=== PATIENT | male | born 1955 | race Caucasian/White ===

== ENCOUNTER 2016-12-02 12:26 | Emergency (ER) | payer BC ==
[~2016-12-02] VITALS: Ht 185.4 cm; Wt 79.7 kg
[2016-12-02 12:34] VITALS: TEMP 36.7; Ht 185.4 cm; Wt 79.7 kg
[2016-12-02 14:01] LABS: URINE APPEARANCE CLEAR (CLEAR); URINE BILIRUBIN NEG (NEG); URINE COLOR YELLOW; URINE NITRITE NEG (NEG); URINE SPECIFIC GRAVITY 1.024 (1.000-1.030); UROBILINOGEN NEG (NEG); ZZUR CULT IF INDIC CLEAN CATCH NO
[2016-12-02 14:06] LABS: MANUAL MICROSCOPIC REQUIRED? NO; REVIEW REQ? NO
[2016-12-02 15:24] LABS: BASO % 0.3 %; BASO ABS # 0.02 K/uL (0-0.2); COMPLETE YES; EOS % 0.8 %; IG% 0.2 %; LYMPH % 24.8 %; LYMPH ABS # 1.63 K/uL (1.2-3.4); MEAN CELL VOLUME 88.9 fL (80-100); MEAN CORPUSCULAR HGB CONC 34.9 g/dl (32-36); MEAN PLATELET VOLUME 9.5 fL (7.4-10.4); MONO % 6.8 %; NEUT % 67.1 %; PLATELET COUNT 236 K/uL (130-400); RED BLOOD COUNT 4.61 M/uL (4.7-6.1); WHITE BLOOD COUNT 6.58 K/uL (4.8-10.8)
[2016-12-02 15:47] LABS: BUN/CREATININE RATIO 17.1 (10-20); C-REACTIVE PROTEIN 0.36 mg/dl (0-0.29); CREATININE 0.9 mg/dl (0.60-1.40); POTASSIUM 3.8 mmol/L (3.5-5.1)
[2016-12-02] MEDS ORDERED: OPTIRAY 320 IV PRN (16:00)
--- NOTE | 2016-12-02 17:21 | DIAGNOSTIC IMAGING REPORT ---
CT LUMBAR SPINE WITHOUT CLINICAL HISTORY: Low back pain. History of bladder cancer. TECHNIQUE: Axial images of the lumbar spine were obtained without IV contrast. Sagittal and coronal reconstructions were viewed. COMPARISON STUDY: None. FINDINGS: There is 1 cm of anterolisthesis of L5 on S1 due to bilateral L5 pars defects. There is mild levoscoliosis of the lumbar spine. There is no acute fracture or suspicious lesion by CT. The central canal and neural foramen are suboptimally assessed by CT. Multilevel disc bulges are noted, the most prominent of which is at the L3-L4 level. This likely results in mild narrowing of the central canal. Paravertebral soft tissues are unremarkable. IMPRESSION: 1. No acute lumbar spine fracture or subluxation. 2. Grade I anterolisthesis of L5 on S1 due to bilateral L5 pars defects. 3. Mild multilevel degenerative disc disease and facet arthrosis. Electronically signed by: Nehemiah Locke M.D. 12/02/2016 5:19 PM Dictated Date/Time: 12/02/2016 5:15 PM
--- NOTE | 2016-12-02 17:26 | DIAGNOSTIC IMAGING REPORT ---
CT PELVIS W/IV CONT ONLY (CT) CT DOSE: 875.31 mGy.cm CLINICAL HISTORY: Pelvic tenderness. Lower back pain. History of bladder cancer. TECHNIQUE: Axial images of the pelvis were obtained following intravenous injection of 93 cc Optiray 320 IV. COMPARISON STUDY: None. FINDINGS: There is extensive sigmoid diverticulosis without evidence for acute diverticulitis. The caliber and wall thickness of visualized small and large bowel is normal. There is no pelvic lymphadenopathy no suspicious osseous lesions are present. No acute fracture within the pelvis or hips is identified. An 8 mm right renal cyst is noted. There is no perianal or perirectal abscess. IMPRESSION: 1. No acute process within the pelvis. 2. Extensive sigmoid diverticulosis without evidence for acute diverticulitis. 3. No perianal/perirectal abscess. Electronically signed by: Nehemiah Locke M.D. 12/02/2016 5:25 PM Dictated Date/Time: 12/02/2016 5:20 PM
[2016-12-02] MEDS ORDERED: CIPR-255 PO (18:47)
[2016-12-02] MEDS ORDERED: CIPROFLOXACIN 500 MG TAB PO STA ×2 (18:48)
[2016-12-02 19:00] VITALS: BP 146/90; PULSE 68; O2SAT 100
--- NOTE | 2016-12-03 00:12 | EMERGENCY ROOM VISIT NOTE ---
History Report prepared by Davion: Lul Farmer Under the Supervision of: Dr. Billy Buchanan M.D. First contact with patient: 14:44 Chief Complaint: BACK PAIN Stated Complaint: LOWER BACK PAIN,TENDER PELVIC AREA,BURNING IN [facility] History of Present Illness The patient is a 61 year old male who presents to the Emergency Room with complaints of intermittent lower back pain beginning one week prior to arrival. He currently rates his discomfort as a 4/10 in severity. The patient associates back pain that radiates to his right groin and down his right leg with today's symptoms. He states he was doing outdoor work around the house and experienced some discomfort with bending over but dismissed it. The patient notes he started experiencing pain and burning in his groin area that radiated to the back of his right leg. The patient states that he was sitting on a narrow stool for an extended period of time and is concerned that this may have irritated his prostate. He states he has a history of bladder cancer and has not had symptoms since 2010. The patient notes his brother had his prostate removed a couple weeks ago due to prostate cancer, and he had similar symptoms except for the back pain. He states he took Aspirin the other day for a road trip to [place], which relieved his discomfort. The patient also notes he has experienced some nausea over the past few days, which is unusual even though he normally skips breakfast and lunch. Pt denies LOC, loss of control of bowel or bladder, passing out, headache, fevers, chills, diaphoresis, visual changes, neck pain, chest pain, breathing difficulties, vomiting, abdominal pain, melena , hematochezia, urinary symptoms, numbness, weakness, lymphadenopathy, rash, or other complaints. Source of History: patient Onset: one week [employer] Position: back (lower) Symptom Intensity: 4/10 Quality: burning Timing: intermittent Associated Symptoms: + back pain, + nausea (intermittent) Note: Associated symptoms: associates back pain that radiates to his right groin and down his right leg Review of Systems See HPI for pertinent positives and negatives. A total of ten systems were reviewed and were otherwise negative. Past Medical & Surgical Medical Problems: (1) Bladder cancer Surgical Problems: (1) H/O partial cystectomy (2) S/P knee surgery Family History Cancer Diabetes mellitus Heart disease Social History Smoking Status: Never Smoker Alcohol Use: occasionally Marital Status: Housing Status: lives with significant other Current/Historical Medications Scheduled Ciprofloxacin Hcl (Cipro), 500 MG PO BID Allergies Coded Allergies: Penicillins (Verified Allergy, Severe, ANAPHYLAXIS, 12/02/16) Physical Exam Vital Signs Date Time Temp Pulse Resp B/P Pulse Ox O2 Delivery O2 Flow Rate FiO2 12/02/16 19:00 68 18 146/90 100 Room Air 12/02/16 16:59 66 18 120/78 99 Room Air 12/02/16 14:39 65 16 132/82 100 12/02/16 12:34 36.7 74 20 128/79 97 Room Air Physical Exam GENERAL: Awake, alert, well-appearing, in no distress HENT: Normocephalic, atraumatic. Oropharynx unremarkable. EYES: Normal conjunctiva. Sclera non-icteric. NECK: Supple. No nuchal rigidity. FROM. No JVD. RESPIRATORY: Clear to auscultation. CARDIAC: Regular rate, normal rhythm. Extremities warm and well perfused. Pulses equal. ABDOMEN: Soft, non-distended. No tenderness to palpation. No rebound or guarding. No masses. RECTAL: Normal rectal. Heme negative. normal tone. No prostate masses appreciated. Mild discomfort on pressing examination but no significant prostate tenderness appreciated. MUSCULOSKELETAL: Chest examination reveals no tenderness. The back is symmetrical on inspection without obvious abnormality. There is no CVA tenderness to palpation. No joint edema. LOWER EXTREMITIES: Calves are equal size bilaterally and non-tender. No edema. No discoloration. NEURO: Normal sensorium. No sensory or motor deficits noted. No saddle anesthesia. Gait normal. SKIN: No rash or jaundice noted. Medical Decision & Procedures ER Provider Diagnostic Interpretation: CT: Radiology results as stated below per my review and radiologist interpretation CT PELVIS W/IV CONT ONLY (CT) CT DOSE: 875.31 mGy.cm CLINICAL HISTORY: Pelvic tenderness. Lower back pain. History of bladder cancer. TECHNIQUE: Axial images of the pelvis were obtained following intravenous injection of 93 cc Optiray 320 IV. COMPARISON STUDY: None. FINDINGS: There is extensive sigmoid diverticulosis without evidence for acute diverticulitis. The caliber and wall thickness of visualized small and large bowel is normal. There is no pelvic lymphadenopathy no suspicious osseous lesions are present. No acute fracture within the pelvis or hips is identified. An 8 mm right renal cyst is noted. There is no perianal or perirectal abscess. IMPRESSION: 1. No acute process within the pelvis. 2. Extensive sigmoid diverticulosis without evidence for acute diverticulitis. 3. No perianal/perirectal abscess. Electronically signed by: Nehemiah Locke M.D. 12/02/2016 5:[address] LUMBAR SPINE WITHOUT CLINICAL HISTORY: Low back pain. History of bladder cancer. TECHNIQUE: Axial images of the lumbar spine were obtained without IV contrast. Sagittal and coronal reconstructions were viewed. COMPARISON STUDY: None. FINDINGS: There is 1 cm of anterolisthesis of L5 on S1 due to bilateral L5 pars defects. There is mild levoscoliosis of the lumbar spine. There is no acute fracture or suspicious lesion by CT. The central canal and neural foramen are suboptimally assessed by CT. Multilevel disc bulges are noted, the most prominent of which is at the L3-L4 level. This likely results in mild narrowing of the central canal. Paravertebral soft tissues are unremarkable. IMPRESSION: 1. No acute lumbar spine fracture or subluxation. 2. Grade I anterolisthesis of L5 on S1 due to bilateral L5 pars defects. 3. Mild multilevel degenerative disc disease and facet arthrosis. Electronically signed by: Nehemiah Locke M.D. 12/02/2016 5:19 PM Laboratory Results 12/02/16 15:15 Red Blood Count 4.61, Mean Corpuscular Volume 88.9, Mean Corpuscular Hemoglobin 31.0, Mean Corpuscular Hemoglobin Concent 34.9, Mean Platelet Volume 9.5, Neutrophils (%) (Auto) 67.1, Lymphocytes (%) (Auto) 24.8, Monocytes (%) (Auto) 6.8, Eosinophils (%) (Auto) 0.8, Basophils (%) (Auto) 0.3, Neutrophils # (Auto) 4.42, Lymphocytes # (Auto) 1.63, Monocytes # (Auto) 0.45, Eosinophils # (Auto) 0.05, Basophils # (Auto) 0.02 12/02/16 15:15 Test 12/02/16 00:00 12/02/16 15:15 Urine Color YELLOW Urine Appearance CLEAR (CLEAR) Urine pH 6.0 (4.5-7.5) Urine Specific [place] 1.024 (1.000-1.030) Urine Protein NEG (NEG) Urine Glucose (UA) NEG (NEG) Urine Ketones NEG (NEG) Urine Occult Blood NEG (NEG) Urine Nitrite NEG (NEG) Urine Bilirubin NEG (NEG) Urine Urobilinogen NEG (NEG) Urine Leukocyte Esterase NEG (NEG) White Blood Count 6.58 K/uL (4.8-10.8) Red Blood Count 4.61 M/uL (4.7-6.1) Hemoglobin 14.3 g/dL (14.0-18.0) Hematocrit 41.0 % (42-52) Mean Corpuscular Volume 88.9 fL (80-100) Mean Corpuscular Hemoglobin 31.0 pg (25-34) Mean Corpuscular Hemoglobin Concent 34.9 g/dl (32-36) Platelet Count 236 K/uL (130-400) Mean Platelet Volume 9.5 fL (7.4-10.4) Neutrophils (%) (Auto) 67.1 % Lymphocytes (%) (Auto) 24.8 % Monocytes (%) (Auto) 6.8 % Eosinophils (%) (Auto) 0.8 % Basophils (%) (Auto) 0.3 % Neutrophils # (Auto) 4.42 K/uL (1.4-6.5) Lymphocytes # (Auto) 1.63 K/uL (1.2-3.4) Monocytes # (Auto) 0.45 K/uL (0.11-0.59) Eosinophils # (Auto) 0.05 K/uL (0-0.5) Basophils # (Auto) 0.02 K/uL (0-0.2) RDW Standard Deviation 39.5 fL (36.4-46.3) RDW Coefficient of Variation 12.3 % (11.5-14.5) Immature Granulocyte % (Auto) 0.2 % Immature Granulocyte # (Auto) 0.01 K/uL (0.00-0.02) Erythrocyte Sedimentation Rate 12 mm/hr (0-14) Anion Gap 3.0 mmol/L (3-11) Est Creatinine Clear Calc Drug Dose 98.4 ml/min Estimated GFR () 107.2 Estimated GFR (Non- 92.5 BUN/Creatinine Ratio 17.1 (10-20) Calcium Level 9.0 mg/dl (8.5-10.1) C-Reactive Protein 0.36 mg/dl (0-0.29) Prostate Specific Antigen 0.436 ng/ml (0.000-4.000) Laboratory results reviewed by me Medications Administered Medications (Trade) Dose Ordered Sig/Clay Route Start Time Stop Time Status Last Admin Dose Admin Ciprofloxacin (Cipro Tab) 500 mg NOW STAT PO 12/02/16 18:48 12/02/16 18:51 DC 12/02/16 18:59 500 MG Ciprofloxacin (Cipro Tab) 500 mg NOW STAT PO 12/02/16 18:48 12/02/16 18:51 DC 12/02/16 18:59 500 MG ED Course 1450: The patient was evaluated in room C8. A complete history and physical exam was performed. 1848: Ordered Cipro Tab 500 mg PO, Cipro Tab 500 mg PO. 1850: I reevaluated the patient. Discussed results and discharge instructions: He verbalized understanding and agreement. I gave the patient Cipro to take home. The patient is ready for discharge. Medical Decision Triage Nursing notes reviewed. The patient's presentation and history were concerning for back and groin pain. Etiologies such as prostatitis, perirectal abscess, malignancy, lumbago, sciatica, cauda equina, epidural abscess, osteomyelitis, fracture, aortic disease, metastatic disease, infection, renal colic, gastrointestinal, as well as others were entertained. The patient was evaluated. Clinically he was doing well. Neurologic findings were absent on examination. His prostate examination was rather unremarkable. The patient had an unremarkable CBC, chemistry panel and urinalysis. CRP minimally elevated. PSA was normal. The patient underwent CT imaging of the pelvis as well as lumbar spine. Degenerative disc disease was noted but no signs of bony destruction or fracture. The pelvis examination revealed no gross abnormalities. On reassessment the patient was doing well. He declined any analgesia again. The patient was informed of the findings. His urinalysis was unremarkable as well. Given his symptoms there is some concern for an early prostatitis albeit very mild. I discussed initiation of treatment and the patient was in agreement. I discussed the risks and benefits of Cipro and he was given the first dose in the Emergency Room. The patient will have this prescribed. He will need close outpatient follow-up. The patient was informed of the findings on his CT scan. I did recommend having a colonoscopy to the patient as well. If he has any increasing symptoms are worsening issues especially with regards to his back then he will need follow-up. I did discuss possible need for MRI. The patient was in agreement. By the evaluation outlined above other emergent etiologies such as those listed in the differential, as well as others, were deemed relatively unlikely. The patient was informed about the findings as listed above. All questions were answered and he was pleased with the treatment. Return instructions were outlined and the patient was discharged in stable condition. The patient was referred to his PCP for follow-up this week for a recheck of the current condition. The chart was completed utilizing [employer]bit Speech voice recognition software. Grammatical errors, random word insertions, pronoun errors, and incomplete sentences are an occasional consequence of this system due to software limitations, ambient noise, and hardware issues. Any formal questions or concerns about the content, text, or information contained within the body of this dictation should be directly addressed to the physician for clarification. Impression Primary Impression: Pelvic pain Additional Impressions: Prostatitis Degenerative disc disease, lumbar Scribe Attestation The scribe's documentation has been prepared under my direction and personally reviewed by me in its entirety. I confirm that the note above accurately reflects all work, treatment, procedures, and medical decision making performed by me. Departure Information Dispostion Home / Self-Care Prescriptions Ciprofloxacin Hcl (CIPRO) 500 Mg Tab 500 MG PO BID, #18 TAB Prov: Billy Buchanan MD 12/02/16 Referrals Juan Antonio Arnett MD (PCP) Forms HOME CARE DOCUMENTATION FORM, IMPORTANT VISIT INFORMATION Patient Instructions My [facility] Additional Instructions Ciprofloxacin(Cipro) 500mg: Take one pill twice daily for 10 days for your prostate. All antibiotics can cause diarrhea. If this occurs and you feel worse or it does not resolve in 1-2 days follow up with your doctor or return to the Emergency Department as this could be signs of serious underlying problems. If you experience any pain in your tendons or any tendon injury return to the ER for re-evaluation. Any medication can cause an allergic reaction, stop the pills immediately and return to the ER for rash, hives, breathing difficulties, or swelling. Ibuprofen(Motrin, Advil) may be used for fever or pain. Use 600mg every six hours as needed. Take with food. Avoid using more than 2400mg in a 24 hour period. Do not use 2400mg per day for more than three consecutive days without physician direction. Prolonged inappropriate use can lead to stomach upset or ulcers. (AND/OR) Acetaminophen(Tylenol) may be used for fever or pain. Use 1000mg every six hours as needed. Avoid using more than 4000mg in a 24 hour period. Rest and drink plenty of fluids. Continue current medications. Return to the ER immediately for worsening or persistent pelvic pain, back pain , weakness, numbness or tingling in the groin area, difficulty walking, vomiting , fevers, increasing back pain, worsening of your condition, or as needed. Follow up with your primary physician within 3 days for a recheck of the current condition. Discuss referral to gastroenterology. If symptoms in your back worsen or do not improve MRI may be necessary as we discussed. Problem Qualifiers Additional Impressions: Prostatitis Prostatitis type: unspecified Qualified Codes: N41.9 - Inflammatory disease of prostate, unspecified
== END 2016-12-02 19:08 | disposition home or self-care (01) ==
LOC: C.EDB 12:29 → C.EDC 19:08
DX: M51.26 Other intervertebral disc displacement, lumbar region (principal); N41.9 Inflammatory disease of prostate, unspecified; R10.2 Pelvic and perineal pain; Z85.51 Personal history of malignant neoplasm of bladder; Z98.890 Other specified postprocedural states; Z88.0 Allergy status to penicillin; Z80.9 Family history of malignant neoplasm, unspecified; Z83.3 Family history of diabetes mellitus; Z82.49 Family history of ischemic heart disease and other diseases of the circulatory system

== ENCOUNTER → 2017-02-13 | Outpatient (CLI) | payer BC ==
[~2017-02-13] MED LIST: CIPR-255 PO
== END | disposition home or self-care (01) ==
LOC: C.RDSM 14:39
PROVIDERS: ATTEND Physical Medicine & Rehabilitation Sports Medicine
DX: M17.12 Unilateral primary osteoarthritis, left knee (principal); S89.91XA Unspecified injury of right lower leg, initial encounter; X58.XXXA Exposure to other specified factors, initial encounter

== ENCOUNTER 2019-06-26 04:47 | Inpatient (IN) ==
--- NOTE | 2019-06-17 12:13 | Anesthesiology Consultation ---
Date of Service June 17, 2019 Assessment & Plan Chart Review Chart Review: Acceptable Risk for Surgery and Patient seen in Pre Admission Testing Consults Requested none ASA ASA2 Proposed Anesthesia Anesthesia Type: MAC Spinal Regional Regional Laterality: Left Site: Adductor Canal History Surgery Operation Date: 06/26/19 09:50 Proposed Procedures p Left Total Knee Arthroplasty - Juanito Singleton MD Height/Weight Height: 6 ft 1 in Weight: 84.9 kg Allergies Allergy/AdvReac Type Severity Reaction Status Date / Time Penicillins Allergy Severe ANAPHYLAXIS Verified 12/02/16 18:04 ciprofloxacin [From Cipro] Allergy Intermediate SWELLING/NU Verified 06/17/19 07:36 MBNESS Medications Home Medications Medication Instructions Recorded Confirmed Last Taken cetirizine [Zyrtec] 10 mg PO QAM 06/17/19 06/17/19 Unknown Past Medical History Medical History Bladder cancer Environmental and seasonal allergies Exercise / Class Metabolic Activity II 4-5 Yardwork/Stairs/Walk up hill Past Family History Family History Mother Family history of diabetes mellitus Brother Family history of diabetes mellitus Past Surgical History Surgical History History of arthroscopy LEFT/RT KNEE History of bladder surgery BLADDER RESECTION AND RADIATION TREATMENT History of colonoscopy History of cystoscopy (MULTIPLE TIMES) History of tonsillectomy [place] teeth removed Past Anesthesia History No Hx of Anesthesia Complications and No Family Hx of Anesthesia Complications History of PONV No Hx of PONV and No Hx of Motion Sickness Social History Smoking Status: Never smoker Do You Dip or Chew Tobacco: No Hx Alcohol Use: Yes alcohol intake frequency: holidays/special occasions only Hx Substance Use: No substance use type: does not use Physical Exam Vital Signs Last Vital Signs Temp 36.3 C L 06/17/19 11:58 Pulse 68 06/17/19 11:58 Resp 16 06/17/19 11:58 BP 125/75 06/17/19 11:58 Pulse Ox 99 06/17/19 11:58 Constitutional not obese ENMT Mouth: no dentition abnormality Thyromental Distance: > or= 3.5 Finger Breadths Mallampati Class: II Neck normal visual inspection and trachea midline; neck extension not limited Respiratory normal respiratory effort Auscultation: lungs clear to auscultation bilaterally Cardiovascular Rate/Rhythm: regular rate and regular rhythm Heart Sounds: no murmur Vessels: no carotid bruit Musculoskeletal Spine: lumbar spine normal to inspection; normal cervical ROM Neurologic moves all extremities Motor/Sensory: no sensory deficit Psychiatric Orientation: alert and oriented x 3 Testing Chest X-Ray Date: 12/17/18 Findings: + NAD
[2019-06-17 14:34] LABS: Basophils # (auto) 0.02 K/uL (0-0.2); Basophils % (auto) 0.3 %; Eosinophils # (auto) 0.14 K/uL (0-0.5); Eosinophils % (auto) 1.9 %; Hematocrit (blood only) 41.5 % (42-52); Hemoglobin 14.3 g/dL (14.0-18.0); Immature Granulocytes # (auto) 0.01 K/uL (0.00-0.02); Immature Granulocytes % (auto) 0.1 %; Lymphocytes # (auto) 1.46 K/uL (1.2-3.4); Lymphocytes % (auto) 19.8 %; Mean Corpuscular Hemoglobin 30.8 pg (25-34); Mean Corpuscular Hgb Conc 34.5 g/dL (32-36); Mean Corpuscular Volume 89.2 fL (80-100); Mean Platelet Volume 10.6 fL (7.4-10.4); Monocytes # (auto) 0.55 K/uL (0.11-0.59); Monocytes % (auto) 7.5 %; Neutrophils % (auto) 70.4 %; Platelet Count 254 K/uL (130-400); RDW Coefficient of Variation 12.7 % (11.5-14.5); Red Blood Count 4.65 M/uL (4.7-6.1); White Blood Count 7.38 K/uL (4.8-10.8)
[2019-06-17 14:47] LABS: Appearance Urine Clear (Clear); Bilirubin Urine Negative (Negative); Blood Urine Negative (Negative); Color Urine Yellow; Glucose Urine UA Negative (Negative); Ketones Urine Negative (Negative); Leukocyte Esterase Urine Negative (Negative); Nitrite Urine Negative (Negative); Protein Urine Negative (Negative); Specific Gravity Urine 1.021 (1.000-1.030); Urobilinogen Urine Negative (Negative)
[2019-06-17 14:53] LABS: Partial Thromboplastin Ratio 0.9; Partial Thromboplastin Time 25.1 Seconds (21.0-31.0); Prothrombin Time 10.3 Seconds (9.0-12.0)
[2019-06-17 14:54] LABS: BUN Creatinine Ratio 14.8 (10-20); Calcium 9.3 mg/dl (8.5-10.1); Creatinine Clr Calc Pharmacy 87.4 ml/min; Est GFR (African American) 94.2; Est GFR (Non-African American) 81.3; Potassium 4.2 mmol/L (3.5-5.1)
[~2019-06-26 04:47] MED LIST changes: +CEFAZOLIN: ALLERGY NOTED TO ORDERED MEDICATION SCH; -CIPR-255 PO
[2019-06-26] MEDS ORDERED: ROPIVACAINE 0.5% HCL/PF 150 MG, BUPIVACAINE 0.5% MPF 30 ML, EPINEPHrine 0.15 MG, Ketoro... INFIL SCH (06:00)
[2019-06-26] MEDS ORDERED: TRANEXAMIC ACID 1,000 MG **IV Pre-op IV SCH (06:00)
[2019-06-26] MEDS ORDERED: VANCOMYCIN HCL 1,250 MG in SODIUM CHLORIDE 0.9% 250 ML IV SCH ×2 (06:00→18:00)
[2019-06-26] MEDS ORDERED: LR 500ML BOLUS, THEN 15ML/HR IV SCH (06:00)
[2019-06-26] MEDS ORDERED: LR 60ML/HR IV SCH (06:00)
[2019-06-26] MEDS ORDERED: CEFAZOLIN 2000MG 2,000 MG/15 ML SYR IV SCH (06:00)
--- NOTE | 2019-06-26 06:30 | History & Physical Bridge Note ---
Date of Service June 26, 2019 History & Physical Bridge Note I have examined the patient, reviewed the History & Physical and in the interval since the performance of the History & Physical I have noted the following changes of clinical significance: consent obtained.no changes noted
[2019-06-26] MEDS ORDERED: BUPIVACAINE 0.5 % 5 MG/1 ML PF 10ML VIAL ONE (06:32)
[2019-06-26] MEDS ORDERED: BUPIVACAINE/EPINEPHRINE 0.25% 1:200,000 30 ML VIAL ONE (06:32)
[2019-06-26] MEDS ORDERED: DEXAMETHASONE SOD INJ 4 MG/ML VIAL ONE (06:33)
[2019-06-26] MEDS ORDERED: ORTHO JOINT ANESTHETIC ONE (06:37)
[2019-06-26] MEDS ORDERED: MIDAZOLAM HCL 1 MG/ML 2ML VIAL ONE (06:47)
[2019-06-26] MEDS ORDERED: PROPOFOL IV EMULSION 10 MG/ML 20 ML VIAL IV ONE (06:47)
[2019-06-26] MEDS ORDERED: fentaNYL citrate 100 MCG/2 ML VIAL IV PRN (07:01)
[2019-06-26] MEDS ORDERED: ONDANSETRON INJ 2 MG/ML 2 ML VIAL IV PRN ×2 (07:01→09:57)
[2019-06-26] MEDS ORDERED: ePHEDrine sulfate 50 MG/ML AMP IV PRN (07:01)
[2019-06-26] MEDS ORDERED: ATROPINE SULFATE 0.1 MG/ML 10ML SYR IV PRN (07:01)
[2019-06-26] MEDS ORDERED: PHENYLEPHRINE 100MCG/ML 5ML SYR ONE (08:28)
--- NOTE | 2019-06-26 08:31 | Post Operative Brief Note ---
Immediate Post Op Note v1 Date of Surgery June 26, 2019 Pre & Post Diagnosis Operation Date: 06/26/19 07:00 Pre-Op Diagnosis: Left Knee End-Stage Degenerative Joint Disease Post-Op Diagnosis: Left Knee End-Stage Degenerative Joint Disease I identified the patient and participated in the time-out.: Yes Procedure Operation Date: 06/26/19 07:00 Actual Procedures p Left Total Knee Arthroplasty(Left) - Juanito Singleton MD Surgeon Juanito Singleton MD [facility] Estimated Blood Loss 25 Findings Consistent with Post-Op Diagnosis
--- NOTE | 2019-06-26 08:37 | Operative Report ---
Post Operative Report Pre & Post Diagnosis Operation Date: 06/26/19 07:00 Pre-Op Diagnosis: Left Knee End-Stage Degenerative Joint Disease Post-Op Diagnosis: Left Knee End-Stage Degenerative Joint Disease I identified the patient and participated in the time-out.: Yes Procedure Operation Date: 06/26/19 07:00 Actual Procedures p Left Total Knee Arthroplasty(Left) - Juanito Singleton MD Surgeon KEITH Singleton MD Pharmacist Helper franny Estimated Blood Loss 25 Findings Consistent with Post-Op Diagnosis Specimens see operative report Drains none Complications none Disposition Accompanied Patient To Recovery: Yes Disposition: Recovery Room Indications This 63-year-old white male presented to the office with complaints of intractable left knee pain. He had tried conservative measures for years, including Visco supplementation injections, knee arthroscopy, activity modification, oral NSAIDs, and oral pain medication. Preoperative imaging was obtained. He elected to proceed with surgical intervention after being educated about potential risks and outcomes. Description of Procedure Patient was administered a spinal anesthetic and then taken to the operating room where he was given sedation. He was prepped and draped in the usual sterile fashion. Please see Dr. Singleton's operative report for specifics of the procedure. I was present for the entire case from initial patient positioning through final wound closure. Assistance was provided in tissue retraction, hemostasis, trial implant placement, final implant placement, and final wound closure. Patient was taken to the recovery room in satisfactory condition. I attest to the content of the Intraoperative Record and any orders documented therein. Any exceptions are noted below.
--- NOTE | 2019-06-26 08:50 | Operative Report ---
DATE OF OPERATION: 06/26/2019 SURGEON: Juanito Singleton MD [place] NET: Jimy Luong PA-C. No resident or fellow available. PREOPERATIVE DIAGNOSIS: Osteoarthritis, left knee with varus deformity. POSTOPERATIVE DIAGNOSIS: Osteoarthritis, left knee with varus deformity. OPERATION PERFORMED: Cemented left total knee replacement. SUMMARY OF IMPLANTS: Size 5 left posterior cruciate substituting femur, size 5 mobile bearing tray, oval dome 3 peg patella size 41, tibial insert size 5, 10 mm thick posterior cruciate substituting, 2 bags of Palacos G cement. ESTIMATED BLOOD LOSS: 25 mL. PATHOLOGY: Pending on bone. DVT prophylaxis with Coumadin. PERIOPERATIVE SITUATION: Medically cleared male who has failed conservative management over the last 10 years with his knee, has increasing varus deformity and marked pain and recurrent synovitis wants to proceed with surgical treatment. Options were discussed. He decided on total knee replacement. DESCRIPTION OF PROCEDURE: The patient was appropriately identified, site verified, consent verified. Antibiotics confirmed as being given. The left lower extremity was prepped and draped in usual routine fashion. Tourniquet inflated to 300 mmHg after exsanguination of limb with a rubber Esmarch bandage for a total of roughly 48 minutes. Midline exposure utilized. Parapatellar arthrotomy performed. Synovectomy completed. There was grade 4 extensive disease in the entire medial compartment. Patellofemoral joint and lateral compartment were relatively preserved. Synovectomy completed. Menisci excised, cruciate excised, the knee able to be subluxated. Distal femur was then resected 12 mm, proximal tibia 4 mm and the extension gap was excellent. The tibia was sized to a 5. Femur was between a 5 and a 6, it was measured 6 cut 5, no notching. Once that was completed, the extension gap was checked. It was excellent. The rest of the cuts were then made on the femur. Posterior condylar and chamfer cuts and the flexion gap checked. It was excellent. The box cut made and the size 5 fit well. The tibia was then broached and reamed to a size 5 and then using a 10 mm spacer posterior cruciate substituting there was excellent stability in full extension, mid range flexion and full flexion. Patella tracked well. The patella was then resected leaving 16 mm, 41 mm trial seated and fit well. It tracked well. The knee was then injected with Orthomix around the entire knee including posterior capsule. The implants were removed. Wound irrigated with Betadine and Pulsavac and then the permanent cemented into position, tibia, femur and patella in that order. After 12 minutes, the tourniquet deflated. Minor bleeding points controlled with electrocautery. At 14 minutes, minor cement removal occurred and the exchange occurred with the trial spacer and permanent spacer. The wound was irrigated prior to this. Everything looked good. The knee was then reduced and then closed at the roughly 30 degrees of flexion balancing extensor mechanism with #2 Vicryl, 2-0 Vicryl and stainless steel clips. Appropriate dressing applied. The patient transferred to recovery room in satisfactory condition having tolerated the procedure well. I attest to the content of the Intraoperative Record and any orders documented therein. Any exception s are noted below.
--- NOTE | 2019-06-26 09:08 | XRay Report ---
TWO VIEWS LEFT KNEE CLINICAL HISTORY: Postoperative examination. FINDINGS: AP and crosstable lateral portable views of the left knee are obtained. A left knee arthrop lasty is in near anatomic alignment. There has been undersurface remodeling of the patella. No acute fracture is seen. There are expected postoperative changes around the knee including skin clips, soft tissue edema, and subcutaneous gas. IMPRESSION: Expected postoperative changes status post left knee arthroplasty. No acute fracture is s een. Electronically signed by: Pj Prater M.D. 06/26/2019 9:07 AM
--- NOTE | 2019-06-26 09:22 | Anesthesiology Progress Note ---
Date of Service June 26, 2019 Anesthesia Post Procedure Vital Signs Vital Signs: Temp Pulse Pulse Resp BP Pulse Ox 06/26/19 09:15 36.4 C L 66 14 91/58 L 98 06/26/19 09:05 36.6 C 69 14 97/61 L 94 06/26/19 08:55 36.6 C 69 12 93/60 L 93 06/26/19 08:45 36.6 C 71 14 95/56 L 93 06/26/19 08:37 36.6 C 74 18 97/56 L 95 06/26/19 05:37 36.7 C 79 20 114/71 94 Pain Intensity Left Knee: Pain Intensity: 0 Transfer of Care Handoff Completed per policy Notes Mental Status: alert / awake / arousable Patient Amnestic to Procedure: Yes Nausea / Vomiting: adequately controlled Pain: adequately controlled Airway Patency, RR, SpO2: stable & adequate BP & HR: stable & adequate Hydration State: stable & adequate Neuraxial Anesthesia: was administered and sensory block is resolving Anesthetic Complications: no major complications apparent
[2019-06-26] MEDS ORDERED: VANCOMYCIN CONSULT ACTIVE PRN (09:57)
[2019-06-26] MEDS ORDERED: OXYCODONE HCL IR 5 MG TAB (IMMEDIATE RELEASE) PO PRN (09:57)
[2019-06-26] MEDS ORDERED: METOCLOPRAMIDE HCL INJ 5 MG/ML 2 ML VIAL IV PRN (09:57)
[2019-06-26] MEDS ORDERED: MAGNESIUM HYDROXIDE SUSP 30 ML UDC PO PRN (09:57)
[2019-06-26] MEDS ORDERED: SODIUM CHLORIDE 0.9% 1000ML 1,000 ML IV SCH (09:57)
[2019-06-26] MEDS ORDERED: BISACODYL 10 MG SUPP PR PRN (09:57)
[2019-06-26] MEDS ORDERED: HYDROmorphone INJ 0.5 MG/0.5 ML SYR IV PRN (09:57)
[2019-06-26] MEDS ORDERED: TAMSULOSIN HCL 0.4 MG CAP PO PRN (09:57)
[2019-06-26] MEDS ORDERED: DiphenhydrAMINE HCL 50 MG/ML VIAL IV PRN (09:57)
[2019-06-26] MEDS ORDERED: ALUMINUM/MAGNESIUM SUSP 30 ML UDC PO PRN (09:57)
[2019-06-26] MEDS ORDERED: NALOXONE HCL 0.4 MG/1 ML VIAL/CARP IV PRN (09:57)
[2019-06-26] MEDS: MULTIVITAMIN TAB PO SCH (10:50)
[2019-06-26] MEDS: CETIRIZINE HCL 10 MG TABLET PO SCH (10:50)
[2019-06-26] MEDS: DOCUSATE SODIUM 100 MG CAP PO SCH ×2 (10:50→21:02)
[2019-06-26] MEDS: ORTHO WARFARIN NOMOGRAM SCH (10:58)
[2019-06-26] MEDS: KETOROLAC 30 MG/ML VIAL IV SCH ×3 (11:00→23:50)
--- NOTE | 2019-06-26 11:07 | Orthopedic Progress Note ---
Date of Service June 26, 2019 Assessment & Plan (1) S/P total knee arthroplasty: Continue postop care plan PT OT mobilize and discharge tomorrow. Present on Admission?: Yes Subjective Postop check patient doing well denies chest pain shortness of breath fever chills nausea vomiting or headache. Physical Exam Physical Exam: Doing well is no major issues. Neurovascular check limited by spinal. Overall doing well. Postop records were excellent. Wound dressing clean dry and intact. Results & Data Vital Signs (Past 12 Hours) Vital Signs Temp Pulse Pulse Resp BP Pulse Ox 06/26/19 10:45 81 16 111/69 90 06/26/19 10:18 70 16 114/74 99 06/26/19 09:45 36.7 C 69 14 99/62 L 97 06/26/19 09:25 36.4 C L 63 18 91/61 L 96 06/26/19 09:15 36.4 C L 66 14 91/58 L 98 06/26/19 09:05 36.6 C 69 14 97/61 L 94 06/26/19 08:55 36.6 C 69 12 93/60 L 93 06/26/19 08:45 36.6 C 71 14 95/56 L 93 06/26/19 08:37 36.6 C 74 18 97/56 L 95 06/26/19 05:37 36.7 C 79 20 114/71 94
--- NOTE | 2019-06-26 11:35 | Discharge Summary ---
CHIEF COMPLAINT: Left knee pain. HISTORY OF PRESENT ILLNESS: A 63-year-old male admitted for elective left total knee replacement. The patient has done well today. He has no issues with chest pain, shortness of breath, fever, chills, nausea, vomiting or headache. PAST MEDICAL HISTORY: Remarkable for osteoarthritis, bladder cancer. Had bladder radiation in 2006 and 2009. PAST SURGICAL HISTORY: Remarkable for bladder tumor resection in 2004, 2006, 2009; colonoscopy in 2017; cystoscopy in 2019. ALLERGIES: PENICILLIN CAUSED HIVES AND FACIAL SWELLING, ALSO CIPRO. PREADMISSION MEDICATIONS: Include Advil, ProAir inhaler, Zyrtec. FAMILY HISTORY: Unremarkable and noncontributory. SOCIAL HISTORY: Reveals he is . No tobacco or alcohol use. Hospital course has been uneventful to date. His spinal is wearing off and he is starting to move his feet. His postop x-rays look excellent. Plan is to discharge from care tomorrow after PT/OT in the morning. Outpatient nursing visits and PT to start at roughly 10+ days. He will be full weightbearing with a walker. Can start driving when he is off narcotics since it is his left lower extremity.
[2019-06-26] MEDS: ACETAMINOPHEN 500 MG TAB PO SCH ×2 (13:16→21:03)
[2019-06-26] MEDS ORDERED: TRANEXAMIC ACID 1,000 MG in 0.9 % SODIUM CHLORIDE 100 ML IV SCH (14:38)
[2019-06-26] MEDS ORDERED: WARFARIN SOD 5 MG TAB PO ONE (16:00)
[2019-06-26] MEDS: FERROUS GLUCONATE 324 MG TAB PO SCH (17:18)
[2019-06-26] MEDS: ASCORBIC ACID 500 MG TAB PO SCH (17:19)
[2019-06-26] MEDS ORDERED: SENNA 8.6 MG TAB PO SCH (21:00)
[2019-06-27] MEDS: ACETAMINOPHEN 500 MG TAB PO SCH (05:50)
[2019-06-27] MEDS: KETOROLAC 30 MG/ML VIAL IV SCH (05:51)
[2019-06-27 06:40] LABS: Hematocrit (blood only) 33.6 % (42-52); Hemoglobin 12.1 g/dL (14.0-18.0); Mean Corpuscular Hemoglobin 31.3 pg (25-34); Mean Platelet Volume 10.1 fL (7.4-10.4); Platelet Count 198 K/uL (130-400); RDW Coefficient of Variation 12.5 % (11.5-14.5); Red Blood Count 3.86 M/uL (4.7-6.1); White Blood Count 11.99 K/uL (4.8-10.8)
[2019-06-27] MEDS: CETIRIZINE HCL 10 MG TABLET PO SCH (06:59)
[2019-06-27] MEDS: MULTIVITAMIN TAB PO SCH (06:59)
[2019-06-27] MEDS: DOCUSATE SODIUM 100 MG CAP PO SCH (06:59)
[2019-06-27] MEDS: ASCORBIC ACID 500 MG TAB PO SCH (06:59)
[2019-06-27] MEDS: FERROUS GLUCONATE 324 MG TAB PO SCH (07:00)
--- NOTE | 2019-06-27 07:08 | Progress Note ---
DATE: 06/26/2019 SUBJECTIVE: Status post left total knee replacement. The patient is doing well, has no major issues. Denies chest pain, shortness of breath, fever, chills, nausea, vomiting or headache. OBJECTIVE: Vital signs are stable. He is afebrile. Neurovascular check, femoral sciatic nerve is normal, left lower extremity. Calves nontender bilaterally. Wound dressing clean, dry and intact, left leg. ASSESSMENT: Doing well. Continue with discharge plans. Dressing change later today by PA. Discharge on Coumadin. Follow up in 2 weeks.
[2019-06-27 07:17] LABS: BUN Creatinine Ratio 18.6 (10-20); Calcium 8.8 mg/dl (8.5-10.1); Creatinine Clr Calc Pharmacy 92.1 ml/min; Est GFR (African American) 100.3; Est GFR (Non-African American) 86.5; Potassium 3.9 mmol/L (3.5-5.1)
[2019-06-27 07:33] LABS: INR 1.1 (0.9-1.1); Prothrombin Time 10.8 Seconds (9.0-12.0)
[2019-06-27] MEDS ORDERED: dexAMETHasone 10 MG in SYRINGE 0 ML IV SCH (08:00)
[2019-06-27] MEDS: ORTHO WARFARIN NOMOGRAM SCH (08:04)
--- NOTE | 2019-06-27 08:57 | Orthopedic Progress Note ---
Date of Service June 27, 2019 Assessment & Plan (1) S/P total knee arthroplasty: Dressing was changed this morning by me. Wound looks excellent. This is to be left in place until Monday, and then change as needed for soiling Keep the wound clean and dry PT/OT this morning. Anticipate discharge to home today with home health services. Continue to use his walker for ambulation. Use the knee immobilizer today, and discontinue tomorrow morning Follow-up in the office in 2 weeks as scheduled for staple removal He will receive his Coumadin dose today prior to discharge. Continue 4 mg daily through the weekend and have his blood rechecked on Monday. Subjective Patient is seen in his room this morning. He has already finished breakfast. He states he did well overnight. He was able to ambulate in the room as well as to the bathroom. He denies any chest pain, shortness of breath, nausea, vomiting, or dizziness. He states the night was easy. He feels ready for discharge to home. Review of Systems Review of Systems: Unchanged from preop Physical Exam Physical Exam: General: Well-developed, well-nourished, middle-aged white male, in no acute distress. Laying on his bed. Alert and oriented. Skin: Dressings are dry and intact. Upon removal, penelope are intact. Wound edges are well approximated. No drainage. Warm and dry with good turgor. No rashes. Expected postop ecchymosis and edema. No erythema. The patient is not diaphoretic. No abrasions. Musculoskeletal: Patient has intact motor function to the knee, ankle, and toes. He is able to set his quad and perform a straight leg raise. Neurologic: Gross sensation is intact across the left leg by soft touch. Peripheral pulses are 2+. Results & Data Vital Signs (Past 12 Hours) Vital Signs Temp Pulse Resp BP Pulse Ox 06/27/19 07:32 36.5 C 57 L 16 116/72 98 06/27/19 02:50 37.0 C 74 16 108/64 96 06/26/19 23:36 36.5 C 66 14 114/58 L 97 Laboratory Results WBCs this morning are 11.99. H&H are acceptable at 12.1 and 33.6. INR this morning is 1.1.
--- NOTE | 2019-06-27 10:58 | Anesthesiology Progress Note ---
Date of Service June 27, 2019 Anesthesia Post Procedure Vital Signs Vital Signs: Temp Pulse Pulse Pulse Pulse Resp BP 06/27/19 10:18 36.5 C 74 57 L 81 71 16 125/75 06/27/19 07:32 36.5 C 57 L 16 06/27/19 02:50 37.0 C 74 16 06/26/19 23:36 36.5 C 66 14 06/26/19 19:49 36.8 C 71 16 06/26/19 16:11 36.5 C 56 L 14 06/26/19 12:45 36.6 C 74 16 06/26/19 11:42 82 16 BP Pulse Ox 06/27/19 10:18 116/72 98 06/27/19 07:32 116/72 98 06/27/19 02:50 108/64 96 06/26/19 23:36 114/58 L 97 06/26/19 19:49 105/65 94 06/26/19 16:11 109/65 98 06/26/19 12:45 123/75 96 06/26/19 11:42 116/68 96 Pain Intensity Left Knee: Pain Intensity: 2 Notes Mental Status: alert / awake / arousable and participated in evaluation Nausea / Vomiting: adequately controlled Pain: adequately controlled Airway Patency, RR, SpO2: stable & adequate BP & HR: stable & adequate Hydration State: stable & adequate Neuraxial Anesthesia: sensory block resolved Anesthetic Complications: no major complications apparent
[2019-06-27] MEDS ORDERED: WARFARIN SOD 5 MG TAB PO ONE (12:00)
== END 2019-06-27 11:59 | disposition home health service (06) | DRG 470 ==
LOC: ASU 04:47 → 3E 08:44

== ENCOUNTER 2023-08-10 07:52 | Observation (INO) ==
--- NOTE | 2023-07-28 11:57 | Anesthesiology Consultation ---
Date of Service July 28, 2023 Assessment & Plan (1) Encounter for pre-operative examination: Chart Review Chart Review: Acceptable Risk for Surgery and Patient NOT seen in Pre Admission Testing -Infectious Disease screening: Per PAT nursing assessment on 07/28/23. No known infectious disease contacts in past 10 days or current infectious disease symptoms. No recent travel outside the country. History Surgery Operation Date: 08/10/23 11:05 Proposed Procedures p Laparoscopic Hiatal Hernia Repair with Partial Fundoplication - Juan Antonio Guillen, Height/Weight Height: 6 ft Weight: 76.204 kg Allergies Allergy/AdvReac Type Severity Reaction Status Date / Time Penicillins Allergy Severe ANAPHYLAXIS, Verified 07/28/23 11:21 rash and hives adhesive Allergy Unknown see notes Verified 07/28/23 11:21 below ciprofloxacin [From Cipro] Allergy Unknown swells my Verified 07/28/23 11:21 face up, numbness on side of face and neck bee sting Allergy Unknown local Uncoded 07/28/23 11:21 swelling, numbness, sob. See notes below. Medications Home Medications Medication Instructions Recorded Confirmed Last Taken lactobacillus combination no.4 3 3,000 mmu cells PO QAM 07/04/23 07/28/23 07/04/23 billion cell capsule (Probiotic) pantoprazole 40 mg tablet,delayed 40 mg PO BID #60 tabs 07/04/23 07/28/23 07/05/23 06:30 release epinephrine 0.3 mg/0.3 mL 0.3 mg IM UD PRN allergic 07/28/23 07/28/23 Unknown injection, auto-injector reaction/hx bee sting allergy. Past Medical History Medical History Family history of reaction to anesthesia sister has a hard time coming out of and they have to elevate her after. Her blood pressure drops. Gastritis mild History of kidney stones Borderline high cholesterol 2019. Has not been re-checked since. History of COVID-19 07/2021- no hosp;resolved History of bladder cancer hx 3 occurences, most recent 2009 hx sx intervention. Gallstones present/not causing a problem. Hiatal hernia Environmental and seasonal allergies Degenerative disc disease, lumbar Past Family History Family History Mother Family history of diabetes mellitus Brother Family history of diabetes mellitus Diabetes Father Diabetes Stroke Heart disease Past Surgical History Surgical History History of endoscopy Jul 05 2023. Hx of total knee arthroplasty left History of arthroscopy (2) LEFT/ (1)RT KNEE History of cystoscopy (MULTIPLE TIMES) History of colonoscopy History of bladder surgery [facility] [place] teeth removed History of tonsillectomy H/O partial cystectomy pt doesn't recall this. Did have hx of multiple moles being removed. Social History Smoking Status: Never smoker Do You Dip or Chew Tobacco: No Hx Alcohol Use: Yes alcohol intake frequency: holidays/special occasions only Hx Substance Use: No substance use type: does not use Lab Results Anesthesia Preop Results Results Anesthesia Widget: WBC 6.15 K/ul (4.8-10.8) 06/29/23 Hgb 15.3 g/dl (14.0-18.0) 06/29/23 Hct 44.4 % (42.0-52.0) 06/29/23 Plt 303 K/uL (130-400) 06/29/23 Na 137 mmol/L (136-145) 06/29/23 K 4.4 mmol/L (3.5-5.1) 06/29/23 Cl 104 mmol/L (98-107) 06/29/23 CO2 26 mmol/L (21-32) 06/29/23 BUN 14 mg/dl (6-23) 06/29/23 Creat 0.92 mg/dl (0.6-1.4) 06/29/23 Glucose Level 96 mg/dl (70-99(Fasting)) 06/29/23 Urine Color Yellow 06/29/23 Urine Appearance Clear (Clear) 06/29/23 Urine pH 5.5 (4.5-7.5) 06/29/23 Urine Specific [place] 1.022 (1.000-1.030) 06/29/23 Urine Protein Negative (Negative) 06/29/23 Urine Glucose (UA) Negative (Negative) 06/29/23 Urine Ketones Trace (Negative) H 06/29/23 Urine Blood Negative (Negative) 06/29/23 Urine Nitrite Negative (Negative) 06/29/23 Urine Bilirubin Negative (Negative) 06/29/23 Urine Urobilinogen Negative (Negative) 06/29/23 Urine Leukocyte Esterase Negative (Negative) 06/29/23 Urine WBC (Auto) 1-5 /hpf (0-5) 06/21/23 Urine RBC (Auto) 0-4 /hpf (0-4) 06/21/23 Urine Hyaline Casts (Auto) 0 /lpf (0-5) 06/21/23 Urine Epithelial Cells (Auto) 0-5 /lpf (0-5) 06/21/23 Urine Bacteria (Auto) Negative (Negative) 06/21/23 Testing Electrocardiogram Date: 06/29/23 Findings: + NSR @ (62bpm) Normal EKG per cardio
[~2023-08-10 07:52] MED LIST changes: -CEFAZOLIN: ALLERGY NOTED TO ORDERED MEDICATION SCH; +CLINDA 900 MG **Premixed Bag IV SCH; +LR 15ML/HR IV SCH
[2023-08-10] MEDS ORDERED: ACETAMINOPHEN 1000 MG/100 ML IV IV ONE (08:31)
[2023-08-10] MEDS ORDERED: MIDAZOLAM HCL 1 MG/ML 2ML VIAL ONE (08:44)
[2023-08-10] MEDS ORDERED: fentaNYL citrate PF 100 MCG/2 ML VIAL ONE ×3 (08:45→12:01)
[2023-08-10] MEDS ORDERED: ATROPINE SULFATE 0.1 MG/ML 10ML SYR IV PRN (09:15)
[2023-08-10] MEDS ORDERED: ePHEDrine sulfate 50 MG/ML AMP IV PRN (09:15)
[2023-08-10] MEDS ORDERED: ONDANSETRON INJ 2 MG/ML 2 ML VIAL IV PRN ×2 (09:15→14:27)
--- NOTE | 2023-08-10 09:27 | History & Physical Bridge Note ---
Date of Service August 10, 2023 History & Physical Bridge Note I have examined the patient, reviewed the History & Physical and in the interval since the performance of the History & Physical I have noted the following changes of clinical significance: no changes noted
[2023-08-10] MEDS ORDERED: BUPIVACAINE/EPINEPHRINE 0.5% MPF 1:200,000 30 ML VIAL ONE (09:56)
[2023-08-10] MEDS ORDERED: SUGAMMADEX SODIUM 200 MG/2 ML VIAL IV ONE (10:20)
[2023-08-10] MEDS ORDERED: DEXAMETHASONE SOD INJ 4 MG/ML VIAL ONE (10:20)
[2023-08-10] MEDS ORDERED: ROCURONIUM BROMIDE 10 MG/ML 5 ML VIAL IV ONE (10:20)
[2023-08-10] MEDS ORDERED: ONDANSETRON INJ 2 MG/ML 2 ML VIAL ONE (10:20)
[2023-08-10] MEDS ORDERED: LIDOCAINE 2% 2 ML VIAL/AMP(20MG/ML) INFIL ONE (10:20)
[2023-08-10] MEDS ORDERED: PROPOFOL IV EMULSION 10 MG/ML 20 ML VIAL IV ONE (10:20)
[2023-08-10] MEDS ORDERED: KETOROLAC 30 MG/ML VIAL ONE (12:24)
[2023-08-10] MEDS ORDERED: LARYING-O-JET KIT (LTA) ONE (12:31)
--- NOTE | 2023-08-10 12:38 | Post Operative Brief Note ---
PG Immediate Post Op with CF Date of Surgery August 10, 2023 Pre & Post Diagnosis Operation Date: 08/10/23 09:35 Pre-Op Diagnosis: Hiatal Hernia Post-Op Diagnosis: Hiatal Hernia I identified the patient and participated in the time-out.: Yes Procedure Operation Date: 08/10/23 09:35 Actual Procedures p Laparoscopic Hiatal Hernia Repair with Partial Fundoplication, Posterior gastroplexy(Not Applicable) - Juan Antonio Guillen DO Surgeon Juan Antonio Guillen DO Sulfuric Acid Plant Supervisor ariana florence Estimated Blood Loss 25 Findings Consistent with Post-Op Diagnosis Specimens Specimen Description: none
--- NOTE | 2023-08-10 12:38 | Operative Report ---
PG Post Operative Report Pre & Post Diagnosis Operation Date: 08/10/23 09:35 Pre-Op Diagnosis: Hiatal Hernia Post-Op Diagnosis: Hiatal Hernia I identified the patient and participated in the time-out.: Yes Procedure Operation Date: 08/10/23 09:35 Actual Procedures p Laparoscopic Hiatal Hernia Repair with Partial Fundoplication, Posterior gastroplexy(Not Applicable) - Juan Antonio Guillen DO Surgeon Juan Antonio Guillen DO Technical Documentation Specialist ariana florence Estimated Blood Loss 25 Findings Consistent with Post-Op Diagnosis Specimens none Description of Procedure After informed consent was obtained the patient was taken to the operating room and placed in supine position. After successful intubation a periumbilical incision was made with an 11 blade scalpel. This was carried down through the soft tissue using cautery. The anterior fascia was opened using cautery and two #0 Vicryl stay sutures were placed. Peritoneum was entered using blunt finger penetration and a finger sweep was performed. A 12 mm Blank trocar was placed and the abdomen was insufflated to 18 mmHg. Laparoscope was inserted and the abdomen examined in 360 degrees. A subxiphoid 12 mm port was reclined in the left flank patient reports vision. Liver retractor attached to the table was used to elevate the left lobe of the liver. This exposed a large hiatal hernia with probably 2/3 of the stomach incarcerated within the chest cavity. The stomach. Taking down the lower extremity sac. We used the harmonic scalpel to do this and started on the right herbert of the diaphragm. I carried this up over the anterior portion of the diaphragm down over to the left herbert. I removed the entire hernia sac in 360 degrees. At this point I had anesthesia pass a 50 Divehi bougie which they did without difficulty. Stomach itself was quite tortuous and was partially volvulized within the chest cavity. After reducing the hernia sac I divided the top 4 or 5 short gastric vessels again using the harmonic scalpel. Next I closed the hiatal hernia defect posteriorly suturing the left crura to the right herbert of the diaphragm using 0 Ethibond with the Endo Stitch device. Once this was accomplished I then closed the defect anteriorly with the same device. Next I created a retrogastric window just above the left gastric artery. I then placed a reticulating grasper through the window and grasped the fundus of the stomach and pulled it through to the medial side of the stomach. Next I secured the fundus to the right herbert of the diaphragm and performed the posterior gastropexy. Once this was accomplished I sutured some of the fundus of the stomach to the serosa of the body of the stomach. I also sutured some the lateral side of the stomach to the anterior portion of the body stomach thus creating a 270 degree partial fundoplication. There was no tension on the wrap at the completion. The bougie was easily removed. There was adequate hemostasis. A final look around show no other abnormalities. The liver retractor and trocars were all removed. The fascia of the camera port was closed using 0 Vicryl in a [id number] fashion. All of the wounds were irrigated and closed using 4 Monocryl. Marcaine with epinephrine was injected around the incisions for postoperative analgesia and skin glue used as a dressing. Patient was awakened extubated and transferred to recovery in stable condition. My nurse practitioner was present for the entire case and was instrumental in providing exposure, running the camera and assisting with all aspects of the repair, wound closure and dressing placement. I attest to the content of the Intraoperative Record and any orders documented therein. Any exceptions are noted below.
[2023-08-10] MEDS: fentaNYL citrate PF 100 MCG/2 ML VIAL IV PRN ×2 (12:53→13:00)
--- NOTE | 2023-08-10 13:37 | Anesthesiology Progress Note ---
Date of Service August 10, 2023 Anesthesia Post Procedure Vital Signs Vital Signs: Temp Pulse Pulse Resp BP Pulse Ox O2 Del Method 08/10/23 13:30 97.5 F L 85 12 130/82 96 Nasal Cannula 08/10/23 13:20 85 12 131/78 97 Nasal Cannula 08/10/23 13:10 87 15 124/81 97 Oxymask 08/10/23 13:00 84 12 110/74 97 Oxymask 08/10/23 12:50 84 17 125/86 97 Oxymask 08/10/23 12:44 96.8 F L 91 H 16 123/81 96 Oxymask 08/10/23 08:32 97.5 F L 70 16 112/76 98 Room Air O2 Flow Rate 08/10/23 13:30 2 08/10/23 13:20 2 08/10/23 13:10 6 08/10/23 13:00 9 08/10/23 12:50 9 08/10/23 12:44 9 08/10/23 08:32 Pain Intensity Abdomen: Pain Intensity: 4 Transfer of Care Handoff Completed per policy Notes Mental Status: alert / awake / arousable and participated in evaluation Patient Amnestic to Procedure: Yes Nausea / Vomiting: adequately controlled Pain: adequately controlled Airway Patency, RR, SpO2: stable & adequate BP & HR: stable & adequate Hydration State: stable & adequate Anesthetic Complications: no major complications apparent and Pt Satisfied with anesthetic care Notes: Patient has crepitus in his upper chest and R periorbital edema. The patient has no change in vision, and the edema is soft. The patient denies any pain. I told the patient to report to nursing if he develops eye pain or if his vision worsens. The patient was understanding. The patient was stable to be discharged to the floor.
[2023-08-10] MEDS ORDERED: oxyCODONE HCL IR 5 MG TAB (IMMEDIATE RELEASE) PO PRN ×2 (14:27)
[2023-08-10] MEDS ORDERED: MoRPHine SULFATE 4 MG/ML 1 ML CARP\\VIAL IV PRN (14:27)
[2023-08-10] MEDS ORDERED: MoRPHine SULFATE 2 MG/ML CARP IV PRN (14:27)
[2023-08-10] MEDS: ACETAMINOPHEN 1,000 MG/100 ML VIAL IV SCH ×2 (14:28→21:07)
[2023-08-10] MEDS: LACTATED RINGER'S 1,000 ML IV SCH ×2 (14:47→23:24)
[2023-08-10] MEDS: KETOROLAC TROMETHAMINE 10 MG TABLET PO PRN ×2 (17:19→23:23)
[2023-08-10] MEDS: CLINDAMYCIN/D5W 600 MG/50 ML BAG IV SCH (17:20)
[2023-08-10] MEDS ORDERED: diphenhydrAMINE 50 MG/ML VIAL IV PRN (18:28)
[2023-08-10] MEDS: PANTOprazole 40 MG TAB PO SCH (21:07)
[2023-08-11] MEDS: CLINDAMYCIN/D5W 600 MG/50 ML BAG IV SCH (02:11)
[2023-08-11] MEDS: ACETAMINOPHEN 1,000 MG/100 ML VIAL IV SCH (03:04)
[2023-08-11 06:36] LABS: Basophils # (auto) 0.01 K/uL (0.00-0.20); Basophils % (auto) 0.1 %; Hematocrit (blood only) 35.4 % (42.0-52.0); Hemoglobin 12.2 g/dl (14.0-18.0); Immature Granulocytes # (auto) 0.03 K/uL (0.01-0.20); Immature Granulocytes % (auto) 0.3 %; Lymphocytes # (auto) 0.75 K/uL (1.20-3.40); Lymphocytes % (auto) 8.6 %; Mean Corpuscular Hemoglobin 29.5 pg (25.0-34.0); Mean Corpuscular Hgb Conc 34.5 g/dL (32.0-36.0); Mean Corpuscular Volume 85.7 fL (80.0-100.0); Mean Platelet Volume 10.1 fL (9.4-12.4); Monocytes # (auto) 0.67 K/uL (0.11-0.59); Monocytes % (auto) 7.7 %; Neutrophils # (auto) 7.24 K/uL (1.40-6.50); Neutrophils % (auto) 83.3 %; Platelet Count 193 K/uL (130-400); RDW Coefficient of Variation 12.6 % (11.5-14.5); RDW Standard Deviation 39.6 fL (36.4-46.3); Red Blood Count 4.13 M/uL (4.70-6.10)
[2023-08-11 07:01] LABS: BUN Creatinine Ratio 20.7 (10-20); Creatinine Clr Calc Pharmacy 86.7 ml/min; Est GFR (African American) 100.1 ml/min; Est GFR (Non-African American) 86.4 ml/min; Potassium 4.5 mmol/L (3.5-5.1)
--- NOTE | 2023-08-11 08:27 | Surgery Progress Note ---
Date of Service August 11, 2023 Assessment & Plan (1) Hiatal hernia: Plan: He is doing well. Okay for discharge. We reinforced his postoperative diet as well as physical restrictions. I like to see him back in 1 to 2 weeks for follow-up. Admission and Anticipated Discharge Date Admission Date: August 10, 2023 Subjective Patient seen. Doing well. He is not really using pain medication and is tolerating liquids. Physical Exam Physical Exam: Alert. No acute distress Abdomen is soft with expected tenderness. Results & Data Vital Signs (Past 12 Hours) Vital Signs Temp Pulse Pulse Resp BP BP Pulse Ox 08/11/23 07:57 36.4 C L 70 16 120/72 96 08/11/23 03:04 36.7 C 73 18 117/67 95 08/10/23 23:39 36.5 C 68 16 119/72 94 08/10/23 22:28 36.8 C 72 18 108/63 96 08/10/23 21:35 O2 Del Method 08/11/23 07:57 Room Air 08/11/23 03:04 Room Air 08/10/23 23:39 Room Air 08/10/23 22:28 Room Air 08/10/23 21:35 Room Air PG Care Time/CCT Total # of Minutes Spent Total Time Spent with Patient: Total time spent is greater than 50% in coordination of care (as documented) at patient's floor/unit and/or counseling patient: Coding Level of Care Code 58842 Post Operative Follow-Up Diagnoses Hiatal hernia K44.9
[2023-08-11] MEDS: PANTOprazole 40 MG TAB PO SCH (09:43)
[2023-08-11] MEDS: KETOROLAC TROMETHAMINE 10 MG TABLET PO PRN (09:43)
--- NOTE | 2023-08-11 12:46 | Discharge Summary ---
Date of Service August 11, 2023 Admission HPI Per Admitting Provider Laparoscopic Hiatal Hernia Repair with Partial Fundoplication, Posterior gastropexy Principal Diagnosis Laparoscopic Hiatal Hernia Repair with Partial Fundoplication, Posterior gastropexy Discharge Exam alert oriented Constitutional well developed, cooperative and comfortable; no acute distress ENMT external ear and nose normal, oropharynx normal Neck trachea midline, no thyromegaly Respiratory normal respiratory effort and able to speak in complete sentences; no respiratory distress Cardiovascular Rate/Rhythm: regular rate Gastrointestinal (Abdomen) Inspection/Auscultation: + abdominal surgical incision (dermabond cdi) Musculoskeletal no cyanosis or clubbing, extremities motor strength 5/5 Skin no rashes, warm and dry Neurologic Speech / Cognition: normal speech Psychiatric A+Ox3, euthymic affect Discharge Data Allergies Allergy/AdvReac Type Severity Reaction Status Date / Time Penicillins Allergy Severe ANAPHYLAXIS, Verified 08/10/23 08:26 rash and hives adhesive Allergy Unknown see notes Verified 08/10/23 08:26 below ciprofloxacin [From Cipro] Allergy Unknown swells my Verified 08/10/23 08:26 face up, numbness on side of face and neck bee sting Allergy Unknown local Uncoded 07/28/23 11:21 swelling, numbness, sob. See notes below. Procedures Performed Operation Date: 08/10/23 09:35 Actual Procedures p Laparoscopic Hiatal Hernia Repair with Partial Fundoplication, Posterior gastroplexy(Not Applicable) - Juan Antonio Guillen DO Hospital Course (1) Hiatal hernia: Patient under an elective Laparoscopic Hiatal Hernia Repair with Partial Fundoplication, Posterior gastropexy with Juan Antonio Guillen DO on 08/10/23. He was admitted to the hospital post operatively for care and observation. His pain was controlled and he was was tolerating a clear liquid diet without difficulty swallowing and without nausea or vomiting. He remained stabled throughout the course of his operation and throughout his hospital stay. He was deemed stable for discharge on POD 1 , 08/11/23. We reinforced his postoperative diet as well as physical restrictions. Dr. Guillen to see him back in 1 to 2 weeks for follow-up. He was given a prescription for non-narcotic pain medication and anti-nausea meds. Total Time Total Time Spent Total Time Spent (In Minutes): 30 Discharge Plan Discharge Items Patient Disposition: Home - Self-Care Reason For Visit: Hiatal Hernia Discharge Diagnosis: Laparoscopic Hiatal Hernia Repair with Partial Fundoplication Condition on Discharge: Good Activity: As commented below Lifting: No more than 10 pounds Bathing Comment: You can shower, no pools or bath for 2 weeks Exercise/Sports: Wait until after follow-up appointment Driving/Machine Use: Resume 1 day after discharge Non-emergency contact: Surgeon Call non-emergency contact if: you have any medication questions, your pain is worsening, your pain is unusual for you, your temperature is above 101, your wound has increased redness and your wound has increased drainage Follow-up/Referrals: Juan Antonio Guillen, [Surgeon] - 08/22/23 9:45 am (call office for a follow up in 2 week s) Janette Ontiveros PA-C [Primary Care Provider] - Diet: Clear liquid Diet Comment: follow diet you discussed with surgeon Mona Attending Provider Instructions: You have surgical glue called dermabond on your surgical site incisions. You may shower with this on. This will tend to come off within a couple of weeks. Do not pick at it. Follow your diet your have discussed with Dr. Guillen. If you have questions call our office. Pending Studies at Discharge: No Stand-Alone [facility] and [facility] Order Prescriptions: New ondansetron HCl 4 mg tablet 4 mg PO Q6H PRN (Reason: nausea and vomiting) Qty: 14 0RF Rx Instructions: Please take one tablet by mouth every 6 hours as needed for nausea. ketorolac 10 mg tablet 10 mg PO Q6H MDD 4 3 Days Qty: 12 0RF Rx Instructions: take one tablet every 6 hours as needed for pain. Continued pantoprazole 40 mg tablet,delayed release (DR/EC) 40 mg PO BID Qty: 60 2RF Probiotic 3 billion cell Capsule 3,000 mmu cells PO QAM Rx Instructions: administer with a meal epinephrine 0.3 mg/0.3 mL Auto-Injector 0.3 mg IM UD PRN (Reason: allergic reaction/hx bee sting allergy. ) Discharge Orders: Discharge Order (Routine); Ordered 08/11/23 Ordered By: Lore Valdovinos Admission Data Admit Date/Time: 08/10/23 12:43 Attending Provider: Juan Antonio Guillen Admit Provider: Juan Antonio Guillen Primary Care Provider: Janette Ontiveros Other Interventions: Discharge Summary Assessment (RN) Last Done: 08/11/23 10:20 Coding Level of Care Code 45087 IN/OBS DISCH 30 MIN/LESS Diagnoses Hiatal hernia K44.9
== END 2023-08-11 11:11 | disposition home or self-care (01) ==
LOC: 3W 07:52 → ASU 07:52